=== PATIENT | female | born 1990 | race Two or more races ===

== ENCOUNTER 2020-01-09 20:07 | Emergency (ER) | payer OTHER ==
[~2020-01-09] VITALS: Ht 157.5 cm; Wt 65.0 kg
[2020-01-10] MEDS ORDERED: LIDOCAINE HCL 1%/EPI 1:200,000 30 ML VIAL MC ONE (00:15)
[2020-01-10 01:13] VITALS: BP 115/68
== END 2020-01-10 01:20 | disposition home or self-care (01) ==
LOC: ER 20:07
DX: N63.0 Unspecified lump in unspecified breast (principal)
CPT/HCPCS: 76705; 76881; 99284; 99285

== ENCOUNTER 2020-01-12 17:18 | Emergency (ER) | payer OTHER ==
[~2020-01-12] VITALS: Ht 157.5 cm; Wt 65.0 kg
[2020-01-12] MEDS ORDERED: IBUPROFEN 600MG TABLET PO ONE (18:45)
[2020-01-12] MEDS ORDERED: LIDOCAINE 1%/EPI 1:100,000 10 ML VIAL IJ ONE (18:45)
[2020-01-12] MEDS ORDERED: SULFAMETHOXAZOLE/TRIMETHOPRIM 800/160MG TABLET PO ONE (18:45)
[2020-01-12] MEDS ORDERED: CEPHALEXIN 250MG CAPSULE PO ONE (18:45)
[2020-01-12] MEDS ORDERED: TETANUS, DIPHTHERIA, PERTUSSIS VAC/PF 0.5ML (>7YR OLD) IM ONE (18:45)
[2020-01-12] MEDS ORDERED: LIDOCAINE HCL/EPINEPHRINE 1%-EPI 1:100,000 20 ML VIAL INFIL NR (19:30)
[2020-01-12 19:59] VITALS: BP 134/72
== END 2020-01-12 20:05 | disposition home or self-care (01) ==
LOC: ER 17:18
DX: L02.213 Cutaneous abscess of chest wall (principal)
CPT/HCPCS: 10060; 90471; 90715; 99284; J3490

== ENCOUNTER 2020-01-16 15:36 | Emergency (ER) | payer OTHER ==
[~2020-01-16] VITALS: Ht 157.5 cm; Wt 65.0 kg
[2020-01-16 15:45] VITALS: BP 114/56
== END 2020-01-16 16:12 | disposition home or self-care (01) ==
LOC: ER 15:36
DX: Z48.00 Encounter for change or removal of nonsurgical wound dressing (principal)
CPT/HCPCS: 99282

== ENCOUNTER 2020-11-01 10:35 | Emergency (ER) | payer MEDICAID ==
[~2020-11-01] VITALS: Ht 157.5 cm; Wt 62.0 kg
[2020-11-01 11:56] LABS: BASOPHILS % 0.6 % (0.0-2.0); EOSINOPHILS % 0.4 % (0.0-5.0); HEMATOCRIT. 39.4 % (36.0-48.0); HEMOGLOBIN. 13.4 g/dL (12.0-16.0); LYMPHOCYTES % 17.6 % (20.0-50.0); MEAN CORPUSCULAR HEMOGLOBIN 30.5 pg (28.0-32.0); MEAN CORPUSCULAR VOLUME 89.6 fL (81.0-99.0); MEAN PLATELET VOLUME 9.4 fl (7.4-10.4); MONOCYTES % 4.9 % (2.0-8.0); NEUTROPHILS % 76.5 % (40.0-76.0); PLATELET 198 x1000/uL (130-400); RED CELL DISTRIBUTION WIDTH 12.7 % (11.6-14.6)
[2020-11-01 12:04] LABS: CHLORIDE 106 mEq/L (98-107)
[2020-11-01 13:20] VITALS: BP 105/64
[2020-11-01 13:27] LABS: B-HCG QUANTITATIVE 53594 mIU/mL (<3)
== END 2020-11-01 13:58 | disposition home or self-care (01) ==
LOC: ER 10:35
DX: O26.891 Other specified pregnancy related conditions, first trimester (principal); R10.32 Left lower quadrant pain; R10.2 Pelvic and perineal pain; Z3A.09 9 weeks gestation of pregnancy
CPT/HCPCS: 36415; 76801; 80053; 81025; 84702; 85025; 86850; 86900; 93005; 99285

== ENCOUNTER 2020-12-26 15:34 | Emergency (ER) | payer MEDICAID ==
[~2020-12-26] VITALS: Ht 157.5 cm; Wt 70.0 kg
[2020-12-26 18:35] LABS: BASOPHILS % 0.5 % (0.0-2.0); EOSINOPHILS % 0.5 % (0.0-5.0); HEMATOCRIT. 39.3 % (36.0-48.0); HEMOGLOBIN. 13.8 g/dL (12.0-16.0); LYMPHOCYTES % 19.5 % (20.0-50.0); MEAN CORPUSCULAR HEMOGLOBIN 30.9 pg (28.0-32.0); MEAN CORPUSCULAR VOLUME 88.1 fL (81.0-99.0); MEAN PLATELET VOLUME 8.9 fl (7.4-10.4); NEUTROPHILS % 74.5 % (40.0-76.0); PLATELET 204 x1000/uL (130-400); RED BLOOD CELL COUNT 4.46 mill/uL (4.2-5.4)
[2020-12-26 18:41] LABS: CHLORIDE 104 mEq/L (98-107)
[2020-12-26 19:11] LABS: B-HCG QUANTITATIVE 16378 mIU/mL (<3)
[2020-12-26 19:17] LABS: CLARITY URINE CLOUDY (CLEAR); COLOR URINE YELLOW (YELLOW); KETONES URINE 1+ (NEGATIVE); LEUKOCYTE ESTERASE URINE 1+ (NEGATIVE); NITRITE URINE NEGATIVE (NEGATIVE); OCCULT BLOOD URINE TRACE (NEGATIVE); PH URINE 5.5 (4.5-8.0); PROTEIN URINE NEGATIVE (NEGATIVE); SPECIFIC GRAVITY URINE 1.023 (1.005-1.030); UROBILINOGEN URINE 0.2 E.U./dL (0.2-1.0)
[2020-12-26] MEDS ORDERED: CEPH500C2 MT (20:40)
[2020-12-26 21:08] VITALS: BP 112/68
== END 2020-12-26 21:08 | disposition home or self-care (01) ==
LOC: ER 16:30
DX: O26.892 Other specified pregnancy related conditions, second trimester (principal); O20.0 Threatened abortion; O36.8120 Decreased fetal movements, second trimester, not applicable or unspecified; Z3A.17 17 weeks gestation of pregnancy
CPT/HCPCS: 36415; 76805; 80053; 81003; 84702; 85025; 86850; 86900; 93005; 99285

== ENCOUNTER 2022-07-13 13:33 | Emergency (ER) | payer MEDICAID ==
[~2022-07-13] VITALS: Ht 162.6 cm; Wt 70.0 kg
[~2022-07-13 13:33] MED LIST: CEPH500C2 MT
[2022-07-13 13:56] VITALS: BP 120/96
== END 2022-07-13 18:50 | disposition left against medical advice (07) ==
LOC: ER 13:36
DX: Z53.21 Procedure and treatment not carried out due to patient leaving prior to being seen by health care provider (principal)